=== PATIENT | female | born 1945 | race Caucasian/White ===

== ENCOUNTER → 2021-06-09 | Outpatient (CLI) | payer OTHER ==
[~2021-06-09] MED LIST: ARIMIDEX1 MG PO; ARMIDEX PO; ASPIR 8181 MG PO; CELEBREX 200MG200 MG PO; CENTRUM SILVER1 EAC4 PO; CLARITIN10 MG PO; DOVONEX60 GM TP; ELIQUIS2.5 MG PO; ENBREL50 MG/1 M1 SQ; HYDROCHLOROTH12.5 M1 PO; LECITHIN400 MG PO; LOVAZA1 GM PO; NAPROXEN375 MG PO; NORCO 7.5-3251 EACH PO; NORVASC 5 MG TAB5 MG PO; TRAMADOL HCL50 MG PO; VITAMIN B COMP1 EACH PO; VOLTAREN100 GM TP; XARELTO1 EACH PO; XARELTO10 MG PO
== END ==
LOC: MAMO 03-23 14:30
DX: Z12.31 Encounter for screening mammogram for malignant neoplasm of breast (principal); C50.219 Malignant neoplasm of upper-inner quadrant of unspecified female breast; M81.0 Age-related osteoporosis without current pathological fracture
CPT/HCPCS: 77063; 77067

== ENCOUNTER → 2021-09-08 | Outpatient (CLI) | payer OTHER | LOC: EXRD 08-09 13:00 | DX: M81.0 Age-related osteoporosis without current pathological fracture (principal); Z12.31 Encounter for screening mammogram for malignant neoplasm of breast; C50.219 Malignant neoplasm of upper-inner quadrant of unspecified female breast; C50.919 Malignant neoplasm of unspecified site of unspecified female breast | CPT/HCPCS: 77080 ==

== ENCOUNTER → 2022-06-14 | Outpatient (CLI) | payer OTHER | LOC: MAMO 06-12 11:30 | DX: Z12.31 Encounter for screening mammogram for malignant neoplasm of breast (principal); C50.219 Malignant neoplasm of upper-inner quadrant of unspecified female breast; M81.0 Age-related osteoporosis without current pathological fracture | CPT/HCPCS: 77063; 77067 ==